=== PATIENT | female | born 1970 | race Caucasian/White ===

== ENCOUNTER 2017-11-04 12:28 | Emergency (ER) | payer MEDICARE, OTHER ==
[~2017-11-04] VITALS: Ht 162.6 cm; Wt 101.2 kg
[~2017-11-04 12:28] MED LIST: ARMOUR THYROID180 M1 PO; ATIVAN0.5 MG PO; BACTRIM DS TAB1 EAC1 PO; HYDROCODONE-AP1 EAC6 PO; HYDROXYZINE HCL25 M1 PO; IBUPROFEN 800800 M1 PO; NORCO 5-325 TA1 EACH PO; SEROQUEL 50 MG50 MG PO; TOPAMAX 100 MG100 MG PO; ZOFRAN ODT4 MG PO
[2017-11-04] MEDS ORDERED: TIROSINT112 MCG PO (12:39)
[2017-11-04 13:14] LABS: ABSOLUTE EOSINOPHILS 0.1 thou/uL (0.0-0.7); ABSOLUTE LYMPHOCYTES 0.9 thou/uL (0.8-5.3); ABSOLUTE MONOCYTES 0.4 thou/uL (0.0-1.2); ABSOLUTE NEUTROPHILS 2.5 thou/uL (1.6-8.1); BASOPHILS 1.1 %; EOSINOPHILS 2.3 %; HEMATOCRIT 39.9 % (37.0-47.0); HEMOGLOBIN 13.9 gm/dL (12.0-15.0); LYMPHOCYTES 23.2 %; MCH 29.4 pg (26.0-34.0); MCHC 34.8 g/dL (28.0-37.0); MCV 84.6 fL (80.0-100.0); MPV 7.1 fl. (7.2-11.1); NUCLEATED RBCS 0 /100WBC; PLATELET COUNT* 168 thou/uL (150-400); POLYS 63.4 %; RBC 4.71 mil/uL (4.20-5.00); RDW-CV 12.9 % (10.5-14.5)
[2017-11-04 13:16] LABS: INFLUENZA A ANTIGEN None Detected (None Detect); INFLUENZA B ANTIGEN None Detected (None Detect)
[2017-11-04] MEDS ORDERED: TESSALON PERLE100 MG PO (13:29)
[2017-11-04] MEDS ORDERED: PROMETHAZINE V473 ML PO (13:29)
[2017-11-04] MEDS ORDERED: ACETAMINOPHEN-1 EAC1 PO (13:29)
[2017-11-04] MEDS ORDERED: PROAIR HFA8.5 GM INH (13:29)
[2017-11-04] MEDS ORDERED: MEDROLDOSEPACK PO (13:29)
[2017-11-04] MEDS ORDERED: DOXYCYCLINE 10100 MG PO (13:29)
[2017-11-04 13:32] LABS: ANION GAP 14 mmol/L (7-16); BUN 9 mg/dL (7-18); CALCIUM 8.7 mg/dL (8.5-10.1); CHLORIDE 105 mmol/L (98-107); CO2 21 mmol/L (21-32); CREATININE 0.8 mg/dL (0.6-1.3); GLUCOSE 92 mg/dL (70-99); POTASSIUM 3.6 mmol/L (3.5-5.1); SODIUM 140 mmol/L (136-145)
[2017-11-04 13:39] LABS: ALBUMIN 3.8 g/dL (3.4-5.0); ALKALINE PHOSPHATASE 88 U/L (46-116); SGOT 24 U/L (15-37); SGPT 19 U/L (30-65); TOTAL BILIRUBIN 0.4 mg/dL (<0.1-1.0); TOTAL PROTEIN 7.4 g/dL (6.4-8.2); TROPONIN-I LEVEL <0.06 ng/mL (<0.06)
[2017-11-04 14:09] VITALS: BP 126/71
--- NOTE | 2017-11-05 10:57 | EKG ---
[place] [address] ELECTROCARDIOGRAM REPORT Name: EVERTON DYE Room: [facility]#: [id number] Admission: 11/04/17 Attend Phys: Discharge: 11/04/17 Date of : 70 Report #: [id number] THIS REPORT FOR: //name// [facility] ED Test Date: 2017-11-04 Test Time: 13:04:45 Pat Name: EVERTON DYE Department: Room: Gender: F Dining Room Helper: : 1970 Requested By: Lisa Downey Order Number: [id number] MD: Manny Champagne Measurements Intervals [place] Rate: 74 P: -5 CO: 163 QRS: 34 QRSD: 89 T: 11 QT: 369 QTc: 410 Interpretive Statements Sinus rhythm Low voltage, precordial leads No previous ECG available for comparison Electronically Signed On 11-05-2017 10:57:00 RAYON CONER by Manny Champagne [email or web address] <ELECTRONICALLY SIGNED> By: Manny Champagne MD, [facility] 11/05/17 1057 1304 1304 Manny Champagne MD, FACC /EPI
== END 2017-11-04 14:09 | disposition home or self-care (01) ==
LOC: M.ERS 12:28
PROVIDERS: Physician Assistant
DX: J18.8 Other pneumonia, unspecified organism (principal); N30.10 Interstitial cystitis (chronic) without hematuria; E03.9 Hypothyroidism, unspecified; Z90.49 Acquired absence of other specified parts of digestive tract; Z88.0 Allergy status to penicillin; Z88.8 Allergy status to other drugs, medicaments and biological substances